=== PATIENT | male | born 1980 | race Caucasian/White ===

== ENCOUNTER 2020-07-14 21:55 | Emergency (ER) | payer OTHER ==
[2020-07-14 22:11] VITALS: BP 120/81; PULSE 78; TEMP 97.2; BMI 25.1
== END 2020-07-14 22:47 | disposition home or self-care (01) ==
LOC: JERFT 21:55
DX: H57.11 Ocular pain, right eye (principal)
CPT/HCPCS: 99283-25

== ENCOUNTER 2021-07-05 22:02 | Emergency (ER) | payer OTHER ==
[2021-07-05 22:13] VITALS: BP 121/72; PULSE 96; TEMP 97; BMI 25.1
== END 2021-07-06 01:26 | disposition home or self-care (01) ==
LOC: JER 22:02
DX: M79.601 Pain in right arm (principal)
CPT/HCPCS: 93971; 99284-25